=== PATIENT | female | born 1990 | race Caucasian/White ===

== ENCOUNTER 2017-02-27 16:09 | Emergency (ER) | payer OTHER ==
[~2017-02-27] VITALS: Ht 160 cm; Wt 76.0 kg
[~2017-02-27 16:09] MED LIST: ACET500C5 PO
[2017-02-27 16:11] VITALS: Ht 160 cm; Wt 76.0 kg
[2017-02-27 17:03] LABS: ADD SCAN DIFF NO
[2017-02-27 17:18] LABS: BASOPHILS % 0.2 % (0.0-2.0); EOSINOPHILS # 0.1 10^3/ul (0.0-0.5); EOSINOPHILS % 0.6 % (0.0-7.0); HEMOGLOBIN 12.7 g/dl (12.0-16.0); LYMPHOCYTES # 2.4 10^3/ul (0.8-2.9); MEAN CORPUSCULAR HEMOGLOBIN 27.4 pg (29.0-33.0); MEAN CORPUSCULAR HGB CONC 32.6 g/dl (32.0-37.0); MEAN CORPUSCULAR VOLUME 84.2 fl (82.0-101.0); MEAN PLATELET VOLUME 9.3 fl (7.4-10.4); MONOCYTE # 0.4 10^3/ul (0.3-0.9); MONOCYTES % 3.6 % (0.0-11.0); NEUTROPHIL # 8.7 10^3/ul (1.6-7.5); NEUTROPHILS % 74.3 % (39.0-77.0); PLATELET COUNT 302 10^3/UL (140-415); RED BLOOD COUNT 4.63 10^6/ul (4.20-5.40); RED CELL DISTRIBUTION WIDTH 13.8 % (11.5-14.5); WHITE BLOOD COUNT 11.6 10^3/ul (4.8-10.8)
--- NOTE | 2017-02-27 17:18 | RADRPT ---
PROCEDURE: XR Chest. CLINICAL INDICATION: Abdominal pain TECHNIQUE: Chest AP portable. COMPARISON: No comparison available. FINDINGS: The mediastinal structures are unremarkable. The heart is normal in size and configuration. The pu lmonary vascularity is normal. The lung valverde are unremarkable. No consolidation is identified. The pleural spaces are unremarkable. The axial skeleton is unremarkable. IMPRESSION: No active intrathoracic disease. RPTAT: [facility] .Brodie Delgado MD, MD Date Time Electronically viewed and signed by .Brodie Delgado MD, on 02/27/2017 17:18 .B/
[2017-02-27 17:26] LABS: ALBUMIN 5.1 g/dl (3.3-4.9); ALBUMIN/GLOBULIN RATIO 1.41; BILIRUBIN,INDIRECT 0.4 mg/dl (0-1.1); BILIRUBIN,TOTAL 0.4 mg/dl (0.2-1.3); CALCIUM 9.9 mg/dl (8.4-10.2); CREATININE 0.67 mg/dl (0.44-1.00); POTASSIUM 4.1 mmol/L (3.5-5.1); TOTAL PROTEIN 8.7 g/dl (6.1-8.1)
[2017-02-27 17:27] LABS: ADD UMIC YES; URINE BILIRUBIN (Dip) NEGATIVE (NEGATIVE); URINE BLOOD (Dip) 1+ (NEGATIVE); URINE COLOR LT. YELLOW (YELLOW); URINE GLUCOSE (Dip) NEGATIVE (NEGATIVE); URINE KETONES (Dip) NEGATIVE (NEGATIVE); URINE LEUKOCYTE ESTERASE (Dip) TRACE (NEGATIVE); URINE NITRITE (Dip) NEGATIVE (NEGATIVE); URINE TOTAL PROTEIN (Dip) NEGATIVE (NEGATIVE); URINE UROBILINOGEN (Dip) 0.2 E.U./dL (0.1-1.0)
[2017-02-27 17:55] LABS: BACTERIA,URINE FEW; MUCUS,URINE MODERATE; SQUAMOUS EPITHELIAL CELL,UR MODERATE
[2017-02-27] MEDS ORDERED: ACETAMINOPHEN 500 MG TAB PO STA (17:59)
[2017-02-27] MEDS ORDERED: FAMOTIDINE 20 MG TAB PO ONE (18:00)
[2017-02-27] MEDS ORDERED: LIDOCAINE/MYLANTA 40 ML BTL PO ONE (18:00)
[2017-02-27] MEDS ORDERED: ACET500C5 PO (18:01)
[2017-02-27] MEDS ORDERED: FAMO-18 PO (18:01)
--- NOTE | 2017-02-27 18:04 | ERD ---
ER Documentation Chief Complaint Date/Time DATE: 02/27/17 TIME: 18:02 Chief Complaint AP X 1 WEEK HPI 26-year-old female complains of left-sided abdominal pain for last week. Is in the epigastric area. She states she had fever at home but no fever triage. She denies any right-sided or lower abdominal pain patient is urinary complaints , cough, shortness of breath or chest pain. She denies any constipation or diarrhea ROS All systems reviewed and are negative except as per history of present illness. Medications Home Meds Active Scripts Acetaminophen* (Tylophen*) 500 Mg Capsule, 1 CAP PO Q6H Y for PAIN AND OR ELEVATED TEMP, #20 CAP Prov:BRYANNA HERNÁNDEZ MD 02/27/17 Famotidine* (Pepcid*) 20 Mg Tablet, 20 MG PO BID for 14 Days, #30 TAB Prov:BRYANNA HERNÁNDEZ MD 02/27/17 Acetaminophen* (Tylophen*) 500 Mg Capsule, 1 CAP PO Q6H Y for PAIN AND OR ELEVATED TEMP, #20 CAP Prov:GREYSON SIMON NP 04/28/16 Allergies Allergies: Coded Allergies: No Known Allergy (Unverified , 04/28/16) PMhx/Soc History of Surgery: Yes (rhinoplasty 2011, remove ovarian cyst 2012) Anesthesia Reaction: No Hx Neurological Disorder: No Hx Respiratory Disorders: No Hx Cardiac Disorders: No Hx Psychiatric Problems: No Hx Miscellaneous Medical Probl: No Hx Alcohol Use: No Hx Substance Use: No Hx Tobacco Use: No Smoking Status: Never smoker Physical Exam Vitals Vital Signs Date Time Temp Pulse Resp B/P Pulse Ox O2 Delivery O2 Flow Rate FiO2 02/27/17 16:11 98.1 82 20 136/85 99 Physical Exam Const: [], [id number]-[id number]. Head: Atraumatic Eyes: Normal Conjunctiva ENT: Normal External Ears, Nose and Mouth. Neck: Full range of motion..~ No meningismus. Resp: Clear to auscultation bilaterally Cardio: Regular rate and rhythm, no murmurs Abd: Soft, minimal left-sided abdominal tenderness in the mid or epigastric area. No tenderness at McBurney's point no Jolley sign. non distended. Normal bowel sounds Skin: No petechiae or rashes Back: No midline or flank tenderness Ext: No cyanosis, or edema Neur: Awake and alert Psych: Normal Mood and Affect Result Diagram: 02/27/17 1652 02/27/17 1652 Results 24 hrs Laboratory Tests Test 02/27/17 16:52 White Blood Count 11.610^3/ul Red Blood Count 4.6310^6/ul Hemoglobin 12.7g/dl Hematocrit 39.0% Mean Corpuscular Volume 84.2fl Mean Corpuscular Hemoglobin 27.4pg Mean Corpuscular Hemoglobin Concent 32.6g/dl Red Cell Distribution Width 13.8% Platelet Count 04969^3/UL Mean Platelet Volume 9.3fl Neutrophils % 74.3% Lymphocytes % 21.0% Monocytes % 3.6% Eosinophils % 0.6% Basophils % 0.2% Nucleated Red Blood Cells % 0.0/100WBC Neutrophils # 8.710^3/ul Lymphocytes # 2.410^3/ul Monocytes # 0.410^3/ul Eosinophils # 0.110^3/ul Basophils # 0.010^3/ul Nucleated Red Blood Cells # 0.010^3/ul Urine Color LT. YELLOW Urine Clarity SLIGHTLY CLOUDY Urine pH 5.5 Urine Specific [place] 1.025 Urine Ketones NEGATIVE Urine Nitrite NEGATIVE Urine Bilirubin NEGATIVE Urine Urobilinogen 0.2 E.U./dL Urine Leukocyte Esterase TRACE Urine Microscopic RBC 2-5/HPF Urine Microscopic WBC 0-2/HPF Urine Squamous Epithelial Cells MODERATE Urine Bacteria FEW Urine Mucus MODERATE Urine Hemoglobin 1+ Urine Glucose NEGATIVE% Urine Total Protein NEGATIVE Sodium Level 145mmol/L Potassium Level 4.1mmol/L Chloride Level 108mmol/L Carbon Dioxide Level 24mmol/L Anion Gap 17 Blood Urea Nitrogen 14mg/dl Creatinine 0.67mg/dl Glucose Level 84mg/dl Calcium Level 9.9mg/dl Total Bilirubin 0.4mg/dl Direct Bilirubin 0.00mg/dl Indirect Bilirubin 0.4mg/dl Aspartate Amino Transf (AST/SGOT) 18IU/L Alanine Aminotransferase (ALT/SGPT) 23IU/L Alkaline Phosphatase 113IU/L Total Protein 8.7g/dl Albumin 5.1g/dl Globulin 3.60g/dl Albumin/Globulin Ratio 1.41 Lipase 69U/L Current Medications Medications (Trade) Dose Ordered Sig/Laura Route PRN Reason Start Time Stop Time Status Last Admin Dose Admin Miscellaneous Medication (Gi Cocktail (2)) 40 ml ONCE ONCE PO 02/27/17 18:00 02/27/17 18:01 DC Acetaminophen (Tylenol Tab) 500 mg ONCE STAT PO 02/27/17 17:59 02/27/17 18:00 DC Famotidine (Pepcid) 20 mg ONCE ONCE PO 02/27/17 18:00 02/27/17 18:01 UNV Procedures/MDM CBC shows white blood cell count 11.8. CMP shows no acute abnormalities and lipase is normal. Urine shows trace leukocyte esterase without bacteria or white blood cells and many epithelial cells. Patient was given Pepcid 20 mg of mouth Tylenol and GI cocktail. \ Chest X-ray 1V Interpreted by me: Soft Tissue: No acute abnormalities Bones: No acute abnormalities Mediastinum/Cardiac Silhouette/Lungs: [No acute abnormalities]. Impression have normal 1 view chest x-ray patient has left epigastric pain of uncertain etiology. Current signs or symptoms do not suggest appendicitis, hepatobiliary disease, acute abdomen, diverticulitis, aortic disease. She will treated with Tylenol and Pepcid and observation at home. The patient was stable with no new complaints during the ER course. Clinically, there is no current evidence to suggest meningitis, sepsis, acute abdomen, pneumonia, acute coronary syndrome, pulmonary embolism, or any other emergent condition appearing to require further evaluation or hospitalization. The patient should certainly return for any new or worsening symptoms per the aftercare instructions. They should otherwise follow-up with her primary care doctor for reevaluation this week. Departure Diagnosis: Primary Impression: Abdominal pain Abdominal location: epigastric Qualified Code: R10.13 - Epigastric pain Condition: Stable Patient Instructions: Abdominal Pain Additional Instructions: Labs and x-ray show no significant acute findings today. We will treat for gastritis. Recheck for fevers, vomiting, blood, new worsening symptoms with primary care doctor. BRYANNA HERNÁNDEZ MD Feb 27, 2017 18:04
== END 2017-02-27 18:34 | disposition home or self-care (01) ==
LOC: FTE 16:09
DX: R10.13 Epigastric pain (principal)
CPT/HCPCS: 36415; 71010; 80053; 81001; 83690; 85025; Z7502; Z7610